=== PATIENT | male | born 1995 | race Native Hawaiian/Other Pacific Islander ===

== ENCOUNTER 2018-09-08 08:50 | Emergency (ER) | payer OTHER ==
[~2018-09-08] VITALS: Ht 177.8 cm; Wt 127.0 kg
[2018-09-08 10:15] VITALS: TEMP 98
[2018-09-08 11:36] VITALS: BP 118/70
== END 2018-09-08 11:36 | disposition home or self-care (01) ==
LOC: ED 08:50
PROC: 0HQFXZZ Repair Right Hand Skin, External Approach (ICD-10-PCS; principal; 2018-09-08)
DX: S61.216A Laceration without foreign body of right little finger without damage to nail, initial encounter (principal); W26.0XXA Contact with knife, initial encounter; Y92.89 Other specified places as the place of occurrence of the external cause
CPT/HCPCS: 99283